=== PATIENT | male | born 1940 | race Two or more races ===

== ENCOUNTER 2017-04-07 01:24 | Emergency (ER) | payer MEDICARE, OTHER ==
[~2017-04-07] VITALS: Ht 167.6 cm; Wt 77.0 kg
[2017-04-07] MEDS ORDERED: IBUPROFEN 600MG TABLET PO ONE (07:30)
[2017-04-07 07:58] VITALS: BP 156/74
== END 2017-04-07 08:04 | disposition home or self-care (01) ==
LOC: ER 01:24
DX: S03.42XA Sprain of jaw, left side, initial encounter (principal); I10 Essential (primary) hypertension; Y08.89XA Assault by other specified means, initial encounter; Y93.89 Activity, other specified; Y92.89 Other specified places as the place of occurrence of the external cause; Y99.8 Other external cause status
CPT/HCPCS: 70486; 99284